=== PATIENT | male | born 1995 | race Caucasian/White ===

== ENCOUNTER 2016-03-29 21:03 | Emergency (ER) | payer OTHER ==
[2016-03-29 21:24] VITALS: BP 148/60; PULSE 86; TEMP 98; BMI 29.0
[2016-03-29] MEDS ORDERED: ACETAMINOPHEN 500 MG TABLET (FP) PO ONE (22:26)
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
[2016-03-29] MEDS ORDERED: ACETAMINOPHEN 500 MG TABLET (FP) ONE (22:28)
== END 2016-03-29 22:56 | disposition home or self-care (01) ==
LOC: JERFT 21:03
DX: S00.83XA Contusion of other part of head, initial encounter (principal); Y04.2XXA Assault by strike against or bumped into by another person, initial encounter; Y93.89 Activity, other specified; Y92.414 Local residential or business street as the place of occurrence of the external cause; Y99.8 Other external cause status
CPT/HCPCS: 99281-25